=== PATIENT | male | born 1960 | race African-American/Black ===

== ENCOUNTER 2017-07-16 20:35 | Emergency (ER) | payer OTHER ==
--- NOTE | 2017-07-16 20:38 | UC ---
Skin Complaint HPI - HPI Summary HPI Summary: 57 YEAR OLD MALE PRESENTS WITH COMPLAINS LEFT CALF WOUND. - History of Current Complaint Time Seen by Provider: 07/16/17 20:36 Stated Complaint: LEG WOUND INFLAMED Hx Obtained From: Patient Onset/Duration: Gradual Onset Skin Exposure Onset/Duration: Days Ago Onset Severity: Moderate Current Severity: Moderate Pain Scale Used: 0-10 Numeric - 5 Location: Other - LEFT CALF - Allergy/Home Medications Allergies/Adverse Reactions: Allergies Allergy/AdvReac Type Severity Reaction Status Date / Time No Known Allergies Allergy Verified 07/16/17 20:44 Home Medications: Home Medications Losartan TAB* [Cozaar TAB*] 25 mg PO DAILY 07/16/17 [History Confirmed 07/16/17] Potassium Chlor TAB* [Klor Con ER TAB*] 20 meq PO DAILY 07/16/17 [History Confirmed 07/16/17] amLODIPine TAB* [Norvasc 5 mg TAB*] 10 mg PO DAILY 07/16/17 [History Confirmed 07/16/17] Review of Systems Constitutional: Negative Skin: Other - LEFT CALF ABRASION Eyes: Negative ENT: Negative Respiratory: Negative Cardiovascular: Negative Gastrointestinal: Negative Genitourinary: Negative Motor: Negative Neurovascular: Negative Musculoskeletal: Negative Neurological: Negative Psychological: Negative All Other Systems Reviewed And Are Negative: Yes PMH/Surg Hx/FS Hx/Imm Hx Previously Healthy: Yes Physical Exam Triage Information Reviewed: Yes Eye Exam: Normal ENT Exam: Normal Dental Exam: Normal Neck exam: Normal Neck: Positive: 1 Respiratory Exam: Normal Cardiovascular Exam: Normal Abdominal Exam: Normal Musculoskeletal Exam: Normal Neurological Exam: Normal Psychological Exam: Normal Skin: Positive: Other - LEFT CALF ABRASION Course/Dx - Differential Diagnoses - Skin Complaint Differential Diagnoses: Abscess, Cellulitis - Diagnoses Provider Diagnoses: LEFT CALF WOUND. LEFT CALF ABRASION Discharge - Discharge Plan Condition: Stable Disposition: HOME Prescriptions: Mupirocin 2% OINT* [Bactroban 2 % Oint*] 1 applic TOPICAL BID #1 tube Sulfamethox/Trimethoprim DS* [Bactrim DS 800/160 TAB*] 1 tab PO BID #14 tab Patient Education Materials: Acute Wound Care (ED), Abrasion (ED)
[2017-07-16 20:44] VITALS: BP 147/91
[2017-07-16] MEDS ORDERED: Tetan/Diph/Pertus SYR(Tdap)* 0.5 ML SYR(BOOSTRIX) use SYR IM ONE (20:48)
[2017-07-16] MEDS ORDERED: Sulfamethox/Trimethoprim DS 800/160* TAB PO ONE (20:49)
== END 2017-07-16 21:20 | disposition home or self-care (01) ==
LOC: UCEAST 20:35
DX: S80.812A Abrasion, left lower leg, initial encounter (principal); X58.XXXA Exposure to other specified factors, initial encounter; Y93.9 Activity, unspecified; Y92.9 Unspecified place or not applicable; Z23 Encounter for immunization
CPT/HCPCS: 90471; 90715; 99202; A9270-GY; G0463